=== PATIENT | female | born 1980 | race Caucasian/White ===

== ENCOUNTER 2017-06-13 04:43 | Emergency (ER) | payer OTHER ==
[~2017-06-13] VITALS: Ht 165.1 cm; Wt 103.0 kg
[2017-06-13] MEDS ORDERED: KETOROLAC 30 MG/1 ML ONE (05:14)
[2017-06-13 05:28] LABS: HCG UR LOT HCG7030192
[2017-06-13] MEDS ORDERED: KETOROLAC 30 MG/1 ML IM ONE (05:30)
[2017-06-13 05:34] LABS: HCG UR OBC PASS
[2017-06-13 06:15] LABS: HEMATOCRIT 45.2 % (34.6-47.8); HEMOGLOBIN 15.7 g/dL (11.7-16.4); WHITE BLOOD COUNT 7.2 x10^3/uL (3.4-10)
[2017-06-13 06:23] LABS: ASPARTATE AMINO TRANSFERASE 15 U/L (15-37); BLOOD UREA NITROGEN 11 mg/dL (7-18)
[2017-06-13 06:54] VITALS: BP 106/75
== END 2017-06-13 08:10 | disposition home or self-care (01) ==
LOC: ED 05:25
DX: N94.89 Other specified conditions associated with female genital organs and menstrual cycle (principal); K21.9 Gastro-esophageal reflux disease without esophagitis
CPT/HCPCS: 36415; 76830; 80053; 81001; 81025; 83690; 85025; 87086; 96372; 99285; J1885